=== PATIENT | female | born 1975 | race Caucasian/White ===

== ENCOUNTER 2016-09-18 14:49 | Emergency (ER) | payer OTHER ==
[~2016-09-18] VITALS: Ht 177.8 cm; Wt 97.7 kg
[2016-09-18] MEDS ORDERED: IBUPROFEN 800 MG TABLET PO ONE (21:00)
[2016-09-18] MEDS ORDERED: TraMADol HCL 50 MG TABLET PO ONE (21:00)
[2016-09-18 21:30] VITALS: BP 144/82
== END 2016-09-18 21:34 | disposition home or self-care (01) ==
LOC: EMS 14:50
DX: S93.401A Sprain of unspecified ligament of right ankle, initial encounter (principal); S93.402A Sprain of unspecified ligament of left ankle, initial encounter; W01.0XXA Fall on same level from slipping, tripping and stumbling without subsequent striking against object, initial encounter; Y93.89 Activity, other specified; Y92.89 Other specified places as the place of occurrence of the external cause; Y99.8 Other external cause status
CPT/HCPCS: 29540; 99284

== ENCOUNTER 2018-08-16 13:38 | Emergency (ER) | payer OTHER ==
[~2018-08-16] VITALS: Ht 160 cm; Wt 86.4 kg
[2018-08-16 13:51] VITALS: BP 134/61
== END 2018-08-16 15:06 | disposition left against medical advice (07) ==
LOC: EMS 13:39
DX: M25.522 Pain in left elbow (principal); M79.89 Other specified soft tissue disorders; R51 Headache; Z90.49 Acquired absence of other specified parts of digestive tract; Z53.21 Procedure and treatment not carried out due to patient leaving prior to being seen by health care provider

== ENCOUNTER 2020-04-01 15:01 | Emergency (ER) | payer OTHER ==
[~2020-04-01] VITALS: Ht 170.2 cm; Wt 95.5 kg
[2020-04-01 16:11] VITALS: BP 131/71
[2020-04-01] MEDS ORDERED: IBUPROFEN 600 MG TABLET PO ONE (16:30)
== END 2020-04-01 16:32 | disposition home or self-care (01) ==
LOC: EMS 15:06
DX: S81.012A Laceration without foreign body, left knee, initial encounter (principal); Z90.89 Acquired absence of other organs; W01.0XXA Fall on same level from slipping, tripping and stumbling without subsequent striking against object, initial encounter; Y93.89 Activity, other specified; Y92.89 Other specified places as the place of occurrence of the external cause; Y99.8 Other external cause status
CPT/HCPCS: 12001